=== PATIENT | male | born 1945 | race Caucasian/White ===

== ENCOUNTER → 2021-01-28 | Outpatient (CLI) | payer MEDICARE, BC ==
[~2021-01-28] MED LIST: AMLODIPINE BESYL5 MG PO; ELIQUIS2.5 MG PO; HYDROCODON-ACE1 EAC4 PO; LEVOTHYROXINE150 MC1 PO; LEVOTHYROXINE150 MCG PO; LISINOPRIL-HCT1 EAC1 PO; MELOXICAM15 MG PO; MEN'S 50 PLUS1 EACH PO; MOBIC15 MG PO; NORVASC5 MG PO; PERCOCET 10-321 EACH PO; PROTONIX 40 MG40 M1 PO; PROTONIX40 MG PO; VITAMIN D3 PO
[2021-01-28 11:14] LABS: RED BLOOD COUNT 4.72 M/UL (4.20-5.50); WHITE BLOOD COUNT 7.8 K/UL (4.5-11.0)
== END ==
LOC: OPSV2 10:17
PROVIDERS: Anesthesiology; Orthopaedic Surgery
DX: Z01.818 Encounter for other preprocedural examination (principal); G56.01 Carpal tunnel syndrome, right upper limb
CPT/HCPCS: 36415; 80048; 85025; 93005

== ENCOUNTER → 2021-02-01 | Day surgery (SDC) | payer MEDICARE, BC | END | disposition home or self-care (01) | LOC: OR 05:59 | DX: G56.03 Carpal tunnel syndrome, bilateral upper limbs (principal); E78.5 Hyperlipidemia, unspecified; Z96.652 Presence of left artificial knee joint; Z20.822 Contact with and (suspected) exposure to COVID-19; I10 Essential (primary) hypertension; Z87.891 Personal history of nicotine dependence; K21.9 Gastro-esophageal reflux disease without esophagitis; E03.9 Hypothyroidism, unspecified | CPT/HCPCS: J1885; J2001; J2704; J3010; J7120 ==

== ENCOUNTER → 2022-03-01 | Outpatient (CLI) | payer MEDICARE, BC | LOC: KOH-I 15:55 | DX: M25.572 Pain in left ankle and joints of left foot (principal) | CPT/HCPCS: 73610; 73620 ==